=== PATIENT | male | born 1940 | race Caucasian/White ===

== ENCOUNTER 2019-11-23 11:15 | Inpatient (IN) | payer MEDICARE ==
[2019-11-23] MEDS ORDERED: Ondansetron PF 4 MG/2 ML Vial IVP PRN (12:14)
[2019-11-23] MEDS ORDERED: Bisacodyl 10 MG SUPP PR PRN (12:14)
[2019-11-23] MEDS ORDERED: Acetaminophen 325 MG TAB PO PRN (12:14)
[2019-11-23] MEDS ORDERED: Guaifenesin DM 100-10/5 ML UDCUP PO PRN (12:14)
[2019-11-23] MEDS ORDERED: Senokot S 8.6-50 MG TAB PO PRN (12:14)
[2019-11-23] MEDS ORDERED: Dextrose 50% Abboject 50 ML SYRINGE SLOW IVP PRN (12:19)
[2019-11-23] MEDS ORDERED: Dextrose 5% in Water 1,000 ML IV PRN (12:19)
[2019-11-23] MEDS ORDERED: HumaLOG 300 UNITS/3 ML VIAL SC PRN (12:19)
[2019-11-23 13:36] VITALS: BMI 24.0
[2019-11-23 13:43] LABS: #Lymphocytes 0.7 thou/uL (1.20-3.40); #Monocytes 0.6 thou/uL (0.11-0.59); #Neutrophils 2.7 thou/uL (1.40-6.50); %Basophils 0.6 % (0.0-1.0); %Eosinophils 1.2 % (0.0-10.0); %Lymphocytes 17.7 % (21.0-51.0); %Monocytes 14.5 % (0.0-10.0); Hemoglobin 13.8 g/dL (14.0-18.0); Mean Corpuscular HGB CONC 33.5 g/dL (32.0-36.0); Mean Corpuscular Hemoglobin 34.1 pg (27.0-31.0); Mean Platelet Volume 7.8 fL (7.4-10.4); Platelet Count 164 thou/uL (130-400); RBC Distribution Width 12.7 % (11.5-14.5); Red Blood Cell (RBC) Count 4.06 mill/uL (4.70-6.10)
[2019-11-23 13:44] LABS: INR-International Normal Ratio 1.4; Prothrombin Time 16.7 SEC (12.0-14.7)
[2019-11-23 13:58] LABS: ALT (SGPT) 23 U/L (8-55); AST (SGOT) 30 U/L (5-34); Alkaline Phosphatase 163 U/L (40-110); Anion Gap 13 mmol/L (10-20); BUN (Urea Nitrogen) 23 mg/dL (8.4-25.7); Bilirubin, Total 1.1 mg/dL (0.2-1.2); Calc. Creatinine Clearance 72 mL/min (70-130); Calcium 8.9 mg/dL (7.8-10.44); Carbon Dioxide 24 mmol/L (23-31); Chloride 100 mmol/L (98-107); Estimated GFR-MDRD 80; Globulin 3.4 g/dL (2.4-3.5); Glucose 265 mg/dL (83-110); Potassium 4.3 mmol/L (3.5-5.1); Protein, Total 6.4 g/dL (5.8-8.1); Sodium 133 mmol/L (136-145)
--- NOTE | 2019-11-23 14:09 | RAD ---
FRONTAL RADIOGRAPH CHEST PORTABLE UPRIGHT: Date: 11/23/2019 COMPARISON: 01/21/2006. HISTORY: Pneumonia with effusion. FINDINGS: Midline sternotomy wires are present. Right lung appears relatively unremarkable. Bilateral shoulder degenerative change noted. There is dense pleural and parenchymal opacity within the left lung base/left perihilar region with o bscuration of the left heart border, left hemidiaphragm, and left costophrenic angle. IMPRESSION: Dense pleural and parenchymal opacity in the left perihilar region/left base. Findings suggest infect ious pneumonitis/aspiration with associated pleural effusion. Follow-up imaging following treatment t o document resolution advised. POS: [facility]
--- NOTE | 2019-11-23 14:41 | PDOC.HOSPP ---
- Subjective Encounter Date: 11/23/19 Encounter Time: 14:00 Subjective: had left thoracentesis with slight serosanguinous fluid removed just now by . No sob or chest pain Post procedure mild cough on deep breathing feels better post procedure Responds well to verbal stimuli. Was transferred here for thoracentesis from [facility], he was hospitalized from last 3 days for pna and left pl effusion. Covid 19 test was -ve. He has been eating and drinking well at the [facility]. No fever or elevated wbc from last 3 days per transfering physician. - Objective Vital Signs & Weight: Vital Signs (12 hours) Temp Pulse Resp BP Pulse Ox 11/23/19 12:09 98.0 F 98 16 135/70 96 Weight Weight 176 lb 14.4 oz Result Diagrams: 11/23/19 13:27 11/23/19 13:27 Hospitalist ROS - Review of Systems Constitutional: denies: fever, chills, sweats, weakness, malaise, other Eyes: denies: pain, vision change, conjunctivae inflammation, eyelid inflammation, redness, other ENT: denies: ear pain, ear discharge, nose pain, nose discharge, nose congestion , mouth pain, mouth swelling, throat pain, throat swelling, other Respiratory: reports: cough, shortness of breath, SOB with excertion Cardiovascular: reports: orthopnea Gastrointestinal: denies: nausea, vomiting, abdominal pain, diarrhea, constipation, melena, hematochezia, other Genitourinary: denies: dysuria, frequency, incontinence, hematuria, retention, other Musculoskeletal: denies: neck pain, shoulder pain, arm pain, back pain, hand pain, leg pain, foot pain, other Skin: denies: rash, lesions, layla, bruising, other Neurological: denies: weakness, numbness, incoordination, change in speech, confusion, seizures, other All other systems reviewed; all pertinent +/- noted in HPI/Subj - Exam General Appearance: awake alert Eye: PERRL, anicteric sclera ENT: no oropharyngeal lesions, moist mucosa Neck: supple, no JVD Heart: no murmur, irregular Respiratory: no wheezes, no rales Gastrointestinal: soft, non-tender, non-distended, normal bowel sounds Extremities: no cyanosis, no edema Neurological: cranial nerve grossly intact, no focal deficits Psychiatric: normal affect, A&O x 3 Hosp A/P (1) Acute exacerbation of CHF (congestive heart failure) Code(s): I50.9 - HEART FAILURE, UNSPECIFIED Status: Acute Qualifiers: Heart failure type: diastolic Qualified Code(s): I50.33 - Acute on chronic diastolic (congestive) heart failure (2) PNA (pneumonia) Code(s): J18.9 - PNEUMONIA, UNSPECIFIED ORGANISM Status: Suspected Qualifiers: Pneumonia type: due to unspecified organism Laterality: left Lung location: lower lobe of lung Qualified Code(s): J18.9 - Pneumonia, unspecified organism (3) Afib Code(s): I48.91 - UNSPECIFIED ATRIAL FIBRILLATION Status: Acute (4) CAD (coronary artery disease) Code(s): I25.10 - ATHSCL HEART DISEASE OF [place] CORONARY ARTERY W/O ANG PCTRS Status: Chronic Qualifiers: Coronary Disease-Associated Artery/Lesion type: bypass graft [place] vs. transplanted heart: [place] heart Associated angina: without angina Qualified Code(s): I25.810 - Atherosclerosis of coronary artery bypass graft(s) without angina pectoris (5) HTN (hypertension) Code(s): I10 - ESSENTIAL (PRIMARY) HYPERTENSION Status: Chronic Qualifiers: Hypertension type: essential hypertension Qualified Code(s): I10 - Essential (primary) hypertension (6) Dyslipidemia Code(s): E78.5 - HYPERLIPIDEMIA, UNSPECIFIED Status: Chronic (7) COPD (chronic obstructive pulmonary disease) Status: Chronic Qualifiers: COPD type: chronic bronchitis (8) BPH (benign prostatic hyperplasia) Code(s): N40.0 - BENIGN PROSTATIC HYPERPLASIA WITHOUT LOWER URINRY TRACT SYMP Status: Chronic Qualifiers: Lower urinary tract symptom presence: unspecified whether lower urinary tract symptoms present Qualified Code(s): N40.0 - Benign prostatic hyperplasia without lower urinary tract symptoms (9) DM type 2 (diabetes mellitus, type 2) Status: Chronic Qualifiers: Diabetes mellitus prison insulin use: without parts counterman use (10) Recurrent left pleural effusion Code(s): J90 - PLEURAL EFFUSION, NOT ELSEWHERE CLASSIFIED Status: Acute - Plan s/p thoracentesis this afternoon, await lab work likely transudate continue home meds including atenolol, metformin, glimepride, lisinopril with hctz and low dose lasix, flomac, pravachol. dc plan in am if stable PT to mobilize as tolerated, incentive spirometry. His director of finance is and he has seen for pulm in the past per records but will f/u with from now on. hemostable Has new onset afib, was started on eliquis, last dose yesterday, will restart from 11/25/2019.
[2019-11-23 14:55] LABS: Fluid, pH - Pleural Fld 7.46 (7.60 - 7.66)
--- NOTE | 2019-11-23 15:25 | PRG ---
DATE OF SERVICE: 11/23/2019 HISTORY OF PRESENT ILLNESS: Mr. Beth is an 79-year-old male, transferred over from [facility] for possible empyema. I locked in the [place] through my office and all I saw was one single x-ray, no CT. He gives a history of having had fluid at the beginning of the year with hospitalization at [facility]. He was given medication and said that at his followup visit, his x-ray had returned to normal. He said the fluid was on the left. He now has fluid on the left again. He is asymptomatic other than feeling a little weak and run down. He had a COVID screen done at [facility], it was negative. His interventional nurse is Dr. Quiroz, and he has been told that his heart function is normal. He says he has been told that he has a heart of an 16-year-old. PAST MEDICAL HISTORY: Remarkable for, 1. Cardiac bypass grafting in the past. 2. Hypertension. 3. Lipid disorder. 4. Reported history of COPD. 5. History of BPH. 6. Diabetes. FAMILY HISTORY: Negative for lung disease in early age. SOCIAL HISTORY: He smoked when he was 28 years old, but has not smoked since. He is not a drinker. REVIEW OF SYSTEMS: 10 point review of systems completed, otherwise negative. ALLERGIES: HE REPORTS ALLERGIES TO NAPROSYN. PHYSICAL EXAMINATION: VITAL SIGNS: Afebrile. Blood pressure 135/70, oximetry is 96% on room air, pulse is 98. HEENT: Pupils are equal. Sclerae are anicteric. NECK: Supple. LUNGS: Remarkable decreased breath sounds with left base. HEART: Regular rhythm. S1 and S2 are normal. ABDOMEN: Soft and nontender. EXTREMITIES: Without clubbing, cyanosis, or edema. NEUROLOGIC: Nonfocal. DIAGNOSTIC DATA: Chest x-ray shows a left effusion. IMPRESSION: Pleural effusion of unclear etiology, likely diastolic heart failure related. PLAN: Thoracentesis. Risks of bleeding, infection, lung collapse were explained. This is a 50 minute consult, with greater than 50% of time spent on unit coordinating care excluding procedures. Job ID: [id number] [facility]
--- NOTE | 2019-11-23 15:53 | HP ---
REASON FOR ADMISSION: Left-sided pleural effusion to rule out parapneumonic effusion versus empyema. HISTORY OF PRESENTING ILLNESS: The patient was transferred from [facility] after being hospitalized there for 3 days. He was found to have had left lower lobe pneumonia with suspected effusion. He has also had history of CHF with diastolic dysfunction with chronic pleural effusions. The patient was also tested for COVID-19 and it came back negative this morning. A decision was made to transfer him for possible thoracentesis versus chest tube placement. He has been eating and drinking well there. He has also ambulated a bit in the room per transferring physician, Dr. Garrett. Prior to hospitalization, the patient has had complaints of exertional shortness of breath. He was also found to have had new-onset atrial fibrillation and was started on Eliquis. The last dose was yesterday. He has seen Dr. Parker who is covering for Dr. Quiroz, his primary steel pourer helper. PAST MEDICAL AND SURGICAL HISTORY: 1. History of CHF with diastolic dysfunction. Last echo was in June 2019, which showed an EF of 55%, diastolic dysfunction, moderate concentric LVH. 2. Coronary artery disease, CABG done in 2005. 3. Chronic bilateral effusions. 4. Diabetes mellitus type 2. Recent HbA1c was 8.5 at [facility]. 5. Hypertension. 6. Dyslipidemia. 7. Benign prostatic hypertrophy. 8. Possible COPD with history of heavy smoking in the past. 9. Knee replacement. 10. Osteoarthritis. CURRENT MEDICATIONS: The patient is on; 1. Atenolol 50 mg p.o. daily. 2. Metformin 1000 mg p.o. twice daily. 3. Glimepiride 1 mg twice daily. 4. Lisinopril with hydrochlorothiazide 20/12.5 mg p.o. daily. 5. Pravastatin 20 mg p.o. daily. 6. Flomax 0.4 mg p.o. daily. 7. Lasix 20 mg daily. 8. Vitamin D3 of 2000 units p.o. daily. 9. Aspirin 81 mg p.o. daily. 10. He was recently started on Eliquis here at [facility]. ALLERGIES: ALLERGIC TO NAPROSYN. PERSONAL HISTORY: Quit smoking years ago. Does not abuse alcohol or drugs. The patient is . FAMILY HISTORY: Father has had history of skin cancer. CODE STATUS: Full. REVIEW OF SYSTEMS: CONSTITUTIONAL: Negative for weight loss or gain, ability to conduct usual activities. SKIN: Negative for rash, itching. EYES: Negative for double vision, pain. ENT/MOUTH: Negative for nose bleeding, neck stiffness, pain, tenderness. CARDIOVASCULAR: Negative for palpitations, dyspnea on exertion, orthopnea. RESPIRATORY: Negative for shortness of breath, wheezing, cough, hemoptysis, fever or night sweats. GASTROINTESTINAL: Negative for poor appetite, abdominal pain, heartburn, nausea, vomiting, constipation, or diarrhea. GENITOURINARY: Negative for urgency, frequency, dysuria, nocturia. MUSCULOSKELETAL: Negative for pain, swelling. NEUROLOGIC/PSYCHIATRIC: Negative for anxiety, depression. ALLERGY/IMMUNOLOGIC: Negative for skin rash, bleeding tendency. PHYSICAL EXAMINATION: GENERAL: The patient is an 79-year-old male, who is currently not in any acute distress. VITAL SIGNS: Blood pressure 136/70, pulse 90 per minute, respiratory rate 18 per minute, temperature 98 degrees Fahrenheit, saturating 96% on room air. NECK: Supple. No elevated JVD. HEENT: Eyes; extraocular muscles intact. Pupils reacting to light. Oral cavity, mucous membranes are moist. No exudates or congestion. CARDIOVASCULAR: S1, S2 heard. Irregular rhythm. RESPIRATORY: Air entry 1+ bilateral. Please note, I am examining after he has had thoracentesis. He is having good air movement now in the left infrascapular area as well. Basal rales plus. ABDOMEN: Soft. Bowel sounds heard. No tenderness, rigidity, or guarding. EXTREMITIES: No peripheral edema or calf tenderness. VASCULAR: Peripheral pulses 1+ bilateral. No ischemic ulcerations or gangrene. CENTRAL NERVOUS SYSTEM: No gross focal deficits noted. The patient is alert, awake, and oriented well. PSYCHIATRIC SYSTEM: The patient's mood is euthymic. No hallucinations or delusions. LABORATORY AND DIAGNOSTIC DATA: White count of 4, H and H of 13 and 41, platelet count 164, MCV is 102 with 66% neutrophils, PT/INR 16 and 1.4, PTT 32. Sodium 133, BUN 23, creatinine 0.9, serum bicarb 24, serum glucose 265. Ferritin is 415. AST and ALT of 30 and 23, alkaline phosphatase 163. CRP 12.74. BNP 820. Albumin is 3.0. Pleural pH is 7.46. Chest x-ray done shows left-sided pleural effusion. Telemetry shows atrial fibrillation. CLINICAL IMPRESSION AND PLAN: The patient is being admitted to telemetry after being transferred from [facility] for left thoracentesis. He has had this procedure done. Post procedure, he is hemodynamically stable at present. He was on Zithromax and ceftriaxone for the last 3 days now. Likely, we will discontinue all his antibiotics, we will await Dr. Barragan's opinion. We will continue his atenolol, aspirin, glimepiride, metformin, lisinopril with hydrochlorothiazide, Pravachol, Flomax as before. We will also place him back on Eliquis from either tomorrow or day after. We will continue to closely monitor him on medical floor. He is hemodynamically stable and he might likely get discharged tomorrow based on clinical progress. We will obtain PT evaluation to ambulate him on the floor. Incentive spirometer will also be given for him to work with at bedside. Job ID: [id number]
[2019-11-23 15:58] LABS: RBC Count-Automated (BF) 5948 /cumm; WBC/Nucleated-Auto (BF) 1918 uL
[2019-11-23 15:59] LABS: BF Color Yellow; Body Fluid Source Thoracentesis Fluid; Clarity Cloudy/Turbid (Clear); Tube # EDTA
[2019-11-23 16:17] LABS: BF Segmented Neutrophils 23 %; Cell Count Non Hematic 35 %; Eosinophils 2 %; Lymphocytes 40 %
[2019-11-23] MEDS: Cefepime 1 GM in Sodium Chloride 0.9% 100 ML IVPB SCH (16:42)
[2019-11-23] MEDS: metFORMIN 500 MG TAB PO SCH (16:44)
[2019-11-23] MEDS: Famotidine 20 MG TAB PO SCH (20:34)
[2019-11-23] MEDS ORDERED: Simvastatin 5 MG TAB PO SCH (21:00)
--- NOTE | 2019-11-23 21:45 | CT ---
CHEST CT WITHOUT CONTRAST: Date: 11-23-2019 Comparison: None History: Effusion Technique: Axial CT imaging is obtained at 5 mm intervals from the thoracic inlet through the upper a bdomen without contrast. Coronal and sagittal reformatted imaging obtained. FINDINGS: The lack of contrast media limits assessment of the imaged viscera, the vascular structures and for l ymphadenopathy. Limited assessment of the upper abdomen demonstrates mild irregularity of the hepatic parenchyma. No pneumothorax is noted on either side. Midline sternotomy wires are present. No obvious lymphadenopath y in the chest. There are calcific mediastinal and bilateral hilar lymph nodes, evidence of prior gra nulomatous disease. Midline sternotomy wires and extensive coronary arterial calcification. No pneumothorax is evident on either side. Scattered pulmonary parenchymal granulomata noted on the right. No dominant pulmonary parenchymal mass lesion or nodule is noted on the right. There is reticular nodular infiltrate with scattered areas of focal consolidation involving the infer ior posterior aspect of the lingula. There is also reticular nodular infiltrate within the superior s egment of the left lower lobe. Within the inferior aspect of the left lower lobe there is peripheral inferior consolidation/collapse. There is a small left pleural effusion as well. Along the posterior margin of the inferior medial left hemithorax there is pleural thickening and mild pleural nodularity , best seen on axial images 47 through 58. No discrete endobronchial lesion is appreciated on this exam. Review of the osseous structures demonstrate multilevel thoracic spine disc space narrowing and anter ior right sided osteophyte formation. No worrisome lytic or blastic bone lesions. Bilateral shoulder degenerative change noted. IMPRESSION: 1. Multifocal reticular nodule or infiltrate within the lingula and left lower lobe suggesting multil obar infectious pneumonitis. There is a small associated inferior left pleural effusion with mild thi ckening and nodularity of the pleura within the left lung base. This may reflect infection or less li davin malignancy. Recommend short term follow up chest CT with IV contrast following treatment to docu ment resolution. 2. Heterogeneity of the hepatic parenchyma suggesting underlying hepatocellular disease/cirrhosis. 3. Extensive atherosclerotic disease. 4. Evidence of prior granulomatous disease. POS: [facility]
[2019-11-24] MEDS: Cefepime 1 GM in Sodium Chloride 0.9% 100 ML IVPB SCH (02:30)
[2019-11-24 04:56] LABS: ALT (SGPT) 21 U/L (8-55); AST (SGOT) 29 U/L (5-34); Albumin 2.8 g/dL (3.4-4.8); Alkaline Phosphatase 146 U/L (40-110); Anion Gap 14 mmol/L (10-20); BUN (Urea Nitrogen) 25 mg/dL (8.4-25.7); Bilirubin, Total 1.1 mg/dL (0.2-1.2); Calc. Creatinine Clearance 76 mL/min (70-130); Calcium 8.7 mg/dL (7.8-10.44); Carbon Dioxide 25 mmol/L (23-31); Chloride 102 mmol/L (98-107); Estimated GFR-MDRD 84; Globulin 3.2 g/dL (2.4-3.5); Glucose 146 mg/dL (83-110); Potassium 4.2 mmol/L (3.5-5.1); Sodium 137 mmol/L (136-145)
[2019-11-24 05:28] LABS: Band 3 % (5-11); Eosinophils 5 % (0-10); Hemoglobin 12.9 g/dL (14.0-18.0); Lymphocytes 34 % (21-51); MDiff Complete? YES; Mean Corpuscular HGB CONC 34.4 g/dL (32.0-36.0); Mean Corpuscular Hemoglobin 35.1 pg (27.0-31.0); Mean Platelet Volume 7.1 fL (7.4-10.4); Monocytes 12 % (0-10); Neutrophil 45 % (42-75); Platelet Count 200 thou/uL (130-400); RBC Distribution Width 12.6 % (11.5-14.5); Reactive Lymphocytes 1 % (0-10); Red Blood Cell (RBC) Count 3.66 mill/uL (4.70-6.10)
--- NOTE | 2019-11-24 06:09 | OP ---
DATE OF PROCEDURE: 11/23/2019 PROCEDURE PERFORMED: Thoracentesis. INDICATION: Pleural effusion. DESCRIPTION OF PROCEDURE: The patient was prepped in sterile fashion with chlorhexidine sponge wipe over left posterior hemithorax. 10 mL of 1% lidocaine was used to anesthetize the interspace and localize fluid using a 22-gauge needle. A small incision was made. An 8-Finnish catheter was inserted in the pleural space without difficulty. 1 L of clear yellow pleural fluid was evacuated from the left chest. No air was aspirated. There was no clinical indication of pneumothorax. The patient tolerated the procedure well. Fluid was sent for the appropriate studies. Job ID: [id number]
[2019-11-24] MEDS ORDERED: Glimepiride 2 MG TAB PO SCH (08:00)
[2019-11-24] MEDS: metFORMIN 500 MG TAB PO SCH (08:32)
[2019-11-24] MEDS: Famotidine 20 MG TAB PO SCH (08:33)
[2019-11-24] MEDS ORDERED: Aspirin 81 mg Enteric Coated Tablet PO SCH (09:00)
[2019-11-24] MEDS ORDERED: Tamsulosin HCl 0.4 MG CAP PO SCH (09:00)
[2019-11-24] MEDS ORDERED: Lisinopril/Hydrochlorothiazide 20 mg/12.5 mg Tablet PO SCH (09:00)
[2019-11-24] MEDS ORDERED: Atenolol 50 MG TAB PO SCH (09:00)
[2019-11-24] MEDS ORDERED: Furosemide 20 MG TAB PO SCH (09:00)
[2019-11-24 11:33] VITALS: BP 127/73; TEMP 97.5
--- NOTE | 2019-11-24 11:55 | PRG ---
DATE OF SERVICE: SUBJECTIVE: Mr. Beth says he feels better. He actually looks great. I talked to Dr. Leiva about him who has access to [facility] and says his radiograph last fall was similar to the radiograph on presentation here. In September, his radiograph cleared. His presentation last fall was felt to be secondary to diastolic dysfunction. This admission, his echocardiogram showed an ejection fraction of 45% to 50%. OBJECTIVE: VITAL SIGNS: He is afebrile today. Heart rate in the 70s, respiratory rates in the teens, oximetry is 98. LUNGS: Clear. HEART: Regular rhythm. ABDOMEN: Soft. ASSESSMENT AND PLAN: CT of his chest last night did not show any mass hiding anywhere in his chest. Pathology is pending. Fluid was exudative, but I suspect it is a subacute/chronic effusion leading to these numbers. It would not be unreasonable treating for an underlying pneumonia, although I suspect this is still related to his cardiomyopathy. I would like to do a followup chest x-ray in 6 weeks. He has my number. I appreciate Dr. Leiva reviewing his records at [facility]. Job ID: [id number]
--- NOTE | 2019-11-24 12:08 | CON ---
DATE OF CONSULTATION: HISTORY OF PRESENT ILLNESS: This is an 79-year-old gentleman who was transferred from [facility] yesterday with possible empyema. The patient had been at [facility] for 2 to 3 days with what was suspected to be a left lower lobe pneumonia and effusion. He presented with some exertional shortness of breath. The patient's past medical history is significant and that he was diagnosed with diastolic dysfunction with a normal ejection fraction of 55% in June, when he was hospitalized at [facility] in [place]. At that time, he was noted to have an effusion and was seen by Pulmonary who recommended conservative management. In September, he had a repeat chest x-ray that showed resolution of his effusion. In 2005, he had coronary artery bypass grafting. His additional medical problems include hypertension, dyslipidemia, type 2 diabetes mellitus, mild to moderate control. In any event, he underwent thoracentesis yesterday by Dr. Barragan with a liter of yellow fluid with a pH of 7.5. Protein was 3.3. He had a CT scan done yesterday evening, and I have reviewed that as well as his chest x-rays at [facility] and CT scan at [facility]. He may have some compressive atelectasis in his left lower lobe and lingula that is not resolved or a mild pneumonia. There is some small amount of basilar pleural fluid and a small amount in the fissure. The additional laboratory values, the patient has no growth on his pleural fluid at 12 hours with no organisms and rare white cells. His white count is 4000 with no left shift. PHYSICAL EXAMINATION: VITAL SIGNS: He is afebrile, blood pressure is 150/80, and his O2 saturation on room air is 96%. LUNGS: Clear to auscultation anteriorly with no wheezes. CARDIAC: No murmurs. He does have ectopy or irregular rhythm. EXTREMITIES: He has trace pretibial edema on the left and none on the right. ASSESSMENT AND PLAN: At this time, I am assuming that this is probably a non infectious process with known diastolic dysfunction and a recent BNP in June of about 1600 and also elevated on this admission at 800. Agree with blood pressure control and diuresis, and after discussion with Dr. Barragan, perhaps 5 to 7 days of oral antibiotics as outpatient. Job ID: [id number]
[2019-11-24] MEDS ORDERED: Vancomycin HCl 1.25 GM in Sodium Chloride 0.9% 250 ML 250 ML IVPB SCH (16:00)
--- NOTE | 2019-11-24 17:29 | DIS ---
DATE OF ADMISSION: 11/23/2019 DATE OF DISCHARGE: 11/24/2019 DISCHARGE DISPOSITION: Home. PRIMARY DISCHARGE DIAGNOSES: [id number] congestive heart failure exacerbation with systolic and diastolic dysfunction with ejection fraction of around 45% with moderate left pleural effusion status post paracentesis with removal of 1 L of fluid. SECONDARY DISCHARGE DIAGNOSES: History of coronary artery disease, diabetes mellitus type 2, hypertension, dyslipidemia, benign prostatic hypertrophy. PROCEDURES DONE DURING HOSPITALIZATION: Chest x-ray done showed left-sided pleural effusion with possible parenchymal opacity. CT chest post thoracentesis done showed multifocal reticular nodule or infiltrate within the lingula in the left lower lobe suggesting multilobar infectious pneumonitis, small associated inferior left pleural effusion, possible hepatocellular disease with heterogeneity, extensive arthrosclerotic disease, echo with 2D Doppler showed an ejection fraction of 45-50%. Thoracentesis done by Dr. Barragan at bedside on 11/23/2019 with removal of 1 L fluid. Thoracentesis fluid Gram stain is negative. There is no growth at 12 hours. White count of 4, H and H 12 and 37, platelet count 200, MCV is 102 with 66% neutrophils. PT/INR 16.7 and 1.4, PTT 32, BUN 25, creatinine 0.8, BNP 820. Albumin 2.8. AST and ALT within normal limits. CRP was 12. DISCHARGE MEDICATIONS: 1. Omnicef 300 mg p.o. twice daily for 6 days. 2. Lasix 20 mg daily. 3. Atenolol 50 mg daily. 4. Aspirin 81 mg daily. 5. Eliquis 2.5 mg twice daily. 6. Flomax 0.4 mg daily. 7. Pravastatin 20 mg p.o. daily. 8. Metformin 1000 mg twice daily. 9. Lisinopril with hydrochlorothiazide 20/12.5 mg daily. 10. Lantus 6 units daily. 11. Glimepiride 1 mg twice daily. 12. Vitamin D3 1000 units p.o. daily. ALLERGIES: TO NAPROSYN. INPATIENT CONSULT: Dr. Leiva for vascular surgery, Dr. Barragan for Pulmonology. DISCHARGE PLAN: The patient to follow up with Dr. Quiroz in 2 weeks. He needs to follow up with Dr. Barragan in 4-6 weeks, Dr. Arcos, his primary care physician in 1 week. BRIEF COURSE DURING HOSPITALIZATION: The patient initially was hospitalized at [facility] for pneumonia and CHF exacerbation with diastolic dysfunction. He had COVID 19 testing done which was negative. The patient had developed moderate left pleural effusion and was transferred here for further workup. He has had consultation with Dr. Barragan and Dr. Leiva. The patient has had bedside thoracentesis done on the left side with removal of 1 L of fluid. Cytology on the fluid is currently pending. The patient has known history of CHF with systolic and diastolic dysfunction. The pleural fluid revealed 1918 wbcs', 5948 rbcs' with 23% neutrophils, 40% lymphocytes. Pleural LDH was 166. Total protein in the pleural fluid was 3.3, pleural glucose was 223, pleural amylase 73, pleural pH 7.5. There were larger atypical cells seen on the body fluid. Differential count and cytology are currently pending. Post thoracentesis, the patient's shortness of breath is better. He is ambulating in the room and in the hallway. [facility] with PT and nursing has been arranged. He is hemodynamically stable and has been cleared for discharge by both Dr. Barragan and Dr. Leiva. He needs to continue Omnicef for a total of 6 days. The patient will have a followup with Dr. Barragan in 4 to 6 weeks likely with a repeat CT chest with contrast. He needs follow up with Dr. Quiroz, his process engineering technician in 2 weeks. He needs to continue the current medications as advised. The patient has been advised to check blood pressure and pulse twice daily. He has to record this and follow up with his primary care physician in 1 week. If his blood pressure drops down, he needs to discontinue Lasix and continue the other medications. Please note, I have seen and examined the patient on the day of discharge. Job ID: [id number]
== END 2019-11-24 13:01 | disposition home health service (06) | DRG 292 ==
LOC: 2NO 12:17
PROVIDERS: ADMIT Internal Medicine; ATTEND Internal Medicine
PROC: 0W9B3ZZ Drainage of Left Pleural Cavity, Percutaneous Approach (ICD-10-PCS; principal; 2019-11-23)
PROC: 8E0ZXY6 Isolation (ICD-10-PCS; 2019-11-23)
DX: I11.0 Hypertensive heart disease with heart failure (principal); J91.8 Pleural effusion in other conditions classified elsewhere; I50.43 Acute on chronic combined systolic (congestive) and diastolic (congestive) heart failure; I25.10 Atherosclerotic heart disease of native coronary artery without angina pectoris; I48.91 Unspecified atrial fibrillation; E11.9 Type 2 diabetes mellitus without complications; I42.9 Cardiomyopathy, unspecified; Z96.659 Presence of unspecified artificial knee joint; E78.5 Hyperlipidemia, unspecified; N40.0 Benign prostatic hyperplasia without lower urinary tract symptoms; Z95.1 Presence of aortocoronary bypass graft; Z88.8 Allergy status to other drugs, medicaments and biological substances
CPT/HCPCS: 36415; 36416; 71045; 71250; 80053; 82150; 82728; 82945; 83615; 83880; 83986; 84157; 85025; 85060; 85610; 85730; 86140; 87070; 87205; 88112; 88305; 89051; 93306; J0692; J3490

== ENCOUNTER 2020-01-02 09:18 | Outpatient (CLI) | payer MEDICARE ==
--- NOTE | 2020-01-02 10:08 | RAD ---
2 VIEWS CHEST: Date: 01/02/2020 COMPARISON: 11/23/2019. HISTORY: Dyspnea. FINDINGS: 2 views of the chest show an enlarged but stable cardiomediastinal silhouette. There is a small left pleural effusion with adjacent atelectasis. The patient is status post sternotomy. Degenerative martins es are seen in the spine. IMPRESSION: Left pleural effusion with adjacent atelectasis. POS: [facility]
== END 2020-01-02 09:19 | disposition home or self-care (01) ==
LOC: RAD 09:18
PROVIDERS: ATTEND Internal Medicine Critical Care Medicine
DX: R06.00 Dyspnea, unspecified (principal); J90 Pleural effusion, not elsewhere classified; J98.11 Atelectasis
CPT/HCPCS: 71046

== ENCOUNTER 2020-01-28 09:55 | Outpatient (CLI) | payer MEDICARE ==
--- NOTE | 2020-01-28 11:47 | RAD ---
PA AND LATERAL VIEWS CHEST: Date: 01/28/2020 HISTORY: Dyspnea. COMPARISON: 01/02/2020. FINDINGS: There are changes of median sternotomy. Moderate sized left pleural effusion is seen. This is slightl y larger than on the previous study. The aorta is tortuous. The heart size is enlarged. The right argelia g is unremarkable. No pneumothoraces seen. IMPRESSION: Moderate size left pleural effusion with mild interval increase in size since 12/13/2019. POS: [facility]
== END 2020-01-28 09:56 | disposition home or self-care (01) ==
LOC: BICRAD 09:55
PROVIDERS: ATTEND Internal Medicine Critical Care Medicine
DX: R06.00 Dyspnea, unspecified (principal); J90 Pleural effusion, not elsewhere classified
CPT/HCPCS: 71046

== ENCOUNTER 2020-06-22 14:29 | Outpatient (CLI) | payer MEDICARE ==
--- NOTE | 2020-06-22 14:52 | SJPRAD ---
EXAM: Chest PA and lateral: HISTORY: Dyspnea COMPARISON: 01/28/2020 FINDINGS: Postop midline sternotomy. Heart size:Within normal limits. Lungs:Clear of acute process. Stable moderate pleural effusion on the left side. IMPRESSION: Overall stable exam.
== END 2020-06-22 14:30 | disposition home or self-care (01) ==
LOC: SCSRAD 14:29
PROVIDERS: ATTEND Physician Assistant
DX: R06.02 Shortness of breath (principal)
CPT/HCPCS: 87635; U0003

== ENCOUNTER 2020-10-29 10:54 | Outpatient (CLI) | payer MEDICARE | END 2020-10-29 10:55 | disposition home or self-care (01) | LOC: BICRAD 10:54 | PROVIDERS: ATTEND Thoracic Surgery (Cardiothoracic Vascular Surgery) | DX: I50.9 Heart failure, unspecified (principal); J86.9 Pyothorax without fistula; J90 Pleural effusion, not elsewhere classified | CPT/HCPCS: 71046 ==

== ENCOUNTER 2022-10-20 15:11 | Inpatient (IN) | payer OTHER, MEDICARE, BC ==
[2022-10-20 15:35] LABS: #Eosinphils 0.1 thou/uL (0.0-0.7); #Lymphocytes 1.1 thou/uL (1.20-3.40); #Monocytes 0.7 thou/uL (0.11-0.59); #Neutrophils 4.1 thou/uL (1.40-6.50); %Basophils 0.5 % (0.0-1.0); %Eosinophils 1.7 % (0.0-10.0); %Lymphocytes 18.8 % (21.0-51.0); %Monocytes 11.6 % (0.0-10.0); %Neutrophils 67.5 % (42.0-75.0); Hemoglobin 10.9 g/dL (14.0-18.0); Mean Corpuscular Hemoglobin 32.4 pg (27.0-31.0); Mean Corpuscular Volume 98.3 fl (78.0-98.0); Mean Platelet Volume 7.1 fL (7.4-10.4); Platelet Count 161 10x3/uL (130-400); Red Blood Cell (RBC) Count 3.37 mill/uL (4.70-6.10); White Blood Cell (WBC) Count 6.1 10x3/uL (4.8-10.8)
[2022-10-20] MEDS ORDERED: Ondansetron PF 4 MG/2 ML Vial ONE (15:40)
[2022-10-20] MEDS ORDERED: FENTANYL 50 MCG/ML 1 ML VIAL ONE (15:46)
[2022-10-20 15:48] LABS: INR-International Normal Ratio 1.7; Prothrombin Time 20.9 sec (12.0-14.7)
[2022-10-20 15:57] LABS: ALT (SGPT) 26 U/L (8-55); AST (SGOT) 44 U/L (5-34); Albumin 3.3 g/dL (3.4-4.8); Alkaline Phosphatase 138 U/L (40-110); Anion Gap 13 mmol/L (10-20); BUN (Urea Nitrogen) 50 mg/dL (8.4-25.7); Bilirubin, Total 1.2 mg/dL (0.2-1.2); CK (CPK) 347 U/L (30-200); Calc. Creatinine Clearance 0 mL/min (70-130); Calcium 8.8 mg/dL (7.8-10.44); Carbon Dioxide 27 mmol/L (23-31); Chloride 101 mmol/L (98-107); Estimated GFR 24; Globulin 3.9 g/dL (2.4-3.5); Glucose 196 mg/dL (83-110); Lipase 45 U/L (8-78); Potassium 4.3 mmol/L (3.5-5.1); Protein, Total 7.2 g/dL (5.8-8.1); Sodium 137 mmol/L (136-145)
[2022-10-20 16:18] LABS: CKMB 12.8 ng/mL (0-6.6)
[2022-10-20] MEDS ORDERED: Ketorolac Tromethamine 30 MG/ML VIAL ONE (16:27)
[2022-10-20] MEDS ORDERED: Lidocaine 1% w/Epinephrine 1:100K 20 ML VIAL ONE (16:56)
[2022-10-20] MEDS ORDERED: CEFAZOLIN 2 GM VIAL ONE (17:59)
[2022-10-20] MEDS ORDERED: Boostrix 0.5 ML (Tdap) VIAL (>/=7 yrs of age) ONE (18:09)
[2022-10-20] MEDS ORDERED: Promethazine HCl 12.5 MG in Sodium Chloride 0.9% 50 ML IVPB SCH (18:15)
[2022-10-20 19:06] LABS: Troponin I 0.129 ng/mL (< 0.028)
[2022-10-20] MEDS ORDERED: Ondansetron PF 4 MG/2 ML Vial IVP PRN (19:30)
[2022-10-20] MEDS ORDERED: Ondansetron ODT 4 MG TAB SL PRN (19:30)
[2022-10-20] MEDS: Acetaminophen 325 MG TAB PO PRN (20:32)
[2022-10-20] MEDS ORDERED: Dextrose 5% in Water 1,000 ML IV PRN (20:53)
[2022-10-20] MEDS ORDERED: Dextrose 50% Abboject 50 ML SYRINGE SLOW IVP PRN (20:53)
[2022-10-20] MEDS ORDERED: Morphine 2 MG/ML VIAL SLOW IVP PRN (20:56)
[2022-10-20] MEDS ORDERED: Lactated Ringer's 1,000 ML IV SCH (21:00)
[2022-10-20] MEDS ORDERED: Apixaban 2.5 MG TAB PO SCH (21:00)
[2022-10-20] MEDS: Furosemide 40 MG TAB PO SCH ×2 (21:16→22:12)
[2022-10-20] MEDS: tiZANidine HCl 4 MG TAB PO PRN (21:16)
[2022-10-20] MEDS: Dronedarone HCl 400 MG TAB PO SCH (21:16)
[2022-10-20 21:28] VITALS: BMI 22.8
[2022-10-20 22:59] LABS: Troponin I 0.183 ng/mL (< 0.028)
[2022-10-21 02:15] LABS: #Lymphocytes 0.5 thou/uL (1.20-3.40); #Monocytes 0.7 thou/uL (0.11-0.59); #Neutrophils 3.6 thou/uL (1.40-6.50); %Basophils 0.2 % (0.0-1.0); %Eosinophils 0.5 % (0.0-10.0); %Lymphocytes 10.1 % (21.0-51.0); %Monocytes 14.3 % (0.0-10.0); %Neutrophils 74.9 % (42.0-75.0); Hemoglobin 9.3 g/dL (14.0-18.0); Mean Corpuscular HGB CONC 32.9 g/dL (32.0-36.0); Mean Corpuscular Hemoglobin 33.1 pg (27.0-31.0); Mean Platelet Volume 7.2 fL (7.4-10.4); Platelet Count 138 10x3/uL (130-400); RBC Distribution Width 12.2 % (11.5-14.5); Red Blood Cell (RBC) Count 2.81 mill/uL (4.70-6.10); White Blood Cell (WBC) Count 4.8 10x3/uL (4.8-10.8)
[2022-10-21 02:54] LABS: Anion Gap 13 mmol/L (10-20); BUN (Urea Nitrogen) 53 mg/dL (8.4-25.7); Calc. Creatinine Clearance 24 mL/min (70-130); Calcium 8.6 mg/dL (7.8-10.44); Carbon Dioxide 26 mmol/L (23-31); Chloride 104 mmol/L (98-107); Estimated GFR 25; Glucose 214 mg/dL (83-110); Potassium 4.6 mmol/L (3.5-5.1); Sodium 138 mmol/L (136-145)
[2022-10-21 04:22] LABS: Hemoglobin 9.3 g/dL (14.0-18.0); Mean Corpuscular HGB CONC 33.1 g/dL (32.0-36.0); Mean Corpuscular Hemoglobin 33.1 pg (27.0-31.0); Mean Platelet Volume 7.4 fL (7.4-10.4); Platelet Count 141 10x3/uL (130-400); RBC Distribution Width 12.1 % (11.5-14.5); Red Blood Cell (RBC) Count 2.81 mill/uL (4.70-6.10); White Blood Cell (WBC) Count 4.4 10x3/uL (4.8-10.8)
[2022-10-21 05:31] LABS: Band 2 % (5-11); Eosinophils 2 % (0-10); Lymphocytes 13 % (21-51); MDiff Complete? YES; Monocytes 14 % (0-10); Neutrophil 69 % (42-75)
[2022-10-21] MEDS: Acetaminophen 325 MG TAB PO PRN (06:41)
[2022-10-21] MEDS: Tamsulosin HCl 0.4 MG CAP PO SCH (09:53)
[2022-10-21] MEDS: Insulin Glargine 30 UNITS/0.3 ML VIAL SC SCH (09:53)
[2022-10-21] MEDS: Aspirin 81 mg Enteric Coated Tablet PO SCH (09:54)
[2022-10-21] MEDS: Dronedarone HCl 400 MG TAB PO SCH ×2 (09:54→20:16)
[2022-10-21] MEDS: Cholecalciferol 1,000 UNITS (25 MCG) TAB PO SCH (09:54)
[2022-10-21] MEDS: Potassium Chloride 20 MEQ TAB PO SCH (09:54)
[2022-10-21] MEDS: tiZANidine HCl 4 MG TAB PO PRN (09:58)
[2022-10-21] MEDS ORDERED: Sodium Chloride 0.9% 1,000 ML IV SCH (12:30)
[2022-10-21] MEDS ORDERED: Pantoprazole 40 MG VIAL IVP SCH (13:00)
[2022-10-21] MEDS: HYDROcodone/Acetaminophen 5/325 mg Tablet PO PRN (13:11)
[2022-10-21] MEDS ORDERED: Hydrocortisone Sod Succ/PF 100 mg/2 ml Vial IVP SCH (14:30)
[2022-10-21] MEDS ORDERED: NOREPINEPHRINE 8 MG/250 ML-D5W 250 ML ONE (14:33)
[2022-10-21 14:51] LABS: #Eosinphils 0.1 thou/uL (0.0-0.7); #Lymphocytes 0.5 thou/uL (1.20-3.40); #Monocytes 0.6 thou/uL (0.11-0.59); #Neutrophils 3.5 thou/uL (1.40-6.50); %Basophils 0.5 % (0.0-1.0); %Eosinophils 1.7 % (0.0-10.0); %Lymphocytes 11.2 % (21.0-51.0); %Monocytes 13.3 % (0.0-10.0); %Neutrophils 73.3 % (42.0-75.0); Hemoglobin 9.8 g/dL (14.0-18.0); Mean Corpuscular HGB CONC 32.6 g/dL (32.0-36.0); Mean Corpuscular Hemoglobin 33.2 pg (27.0-31.0); Mean Platelet Volume 7.2 fL (7.4-10.4); Platelet Count 156 10x3/uL (130-400); RBC Distribution Width 12.2 % (11.5-14.5); Red Blood Cell (RBC) Count 2.94 mill/uL (4.70-6.10); White Blood Cell (WBC) Count 4.7 10x3/uL (4.8-10.8)
[2022-10-21 15:10] LABS: Lactic Acid 1.3 mmol/L (0.5-2.2)
[2022-10-21 15:15] LABS: Anion Gap 14 mmol/L (10-20); BUN (Urea Nitrogen) 53 mg/dL (8.4-25.7); Calc. Creatinine Clearance 26 mL/min (70-130); Calcium 8.6 mg/dL (7.8-10.44); Carbon Dioxide 22 mmol/L (23-31); Chloride 104 mmol/L (98-107); Estimated GFR 27; Glucose 167 mg/dL (83-110); Magnesium 1.9 mg/dL (1.6-2.6); Phosphorus 3.8 mg/dL (2.3-4.7); Potassium 4.8 mmol/L (3.5-5.1); Sodium 135 mmol/L (136-145)
[2022-10-21] MEDS: Hydrocortisone Sod Succ/PF 100 mg/2 ml Vial IVP SCH (17:31)
[2022-10-21] MEDS ORDERED: NOREPINEPHRINE 8 MG/250 ML-D5W 250 ML IVPB SCH (20:30)
[2022-10-22] MEDS: Hydrocortisone Sod Succ/PF 100 mg/2 ml Vial IVP SCH ×5 (05:16→18:04)
[2022-10-22 05:26] LABS: #Lymphocytes 0.4 thou/uL (1.20-3.40); #Monocytes 0.2 thou/uL (0.11-0.59); %Basophils 0.2 % (0.0-1.0); %Eosinophils 0.1 % (0.0-10.0); %Lymphocytes 6.3 % (21.0-51.0); %Neutrophils 90.4 % (42.0-75.0); Hemoglobin 10.9 g/dL (14.0-18.0); Mean Platelet Volume 7.7 fL (7.4-10.4); Platelet Count 156 10x3/uL (130-400); RBC Distribution Width 12.3 % (11.5-14.5); Red Blood Cell (RBC) Count 3.29 mill/uL (4.70-6.10); White Blood Cell (WBC) Count 6.6 10x3/uL (4.8-10.8)
[2022-10-22 05:49] LABS: ALT (SGPT) 23 U/L (8-55); AST (SGOT) 51 U/L (5-34); Albumin 2.9 g/dL (3.4-4.8); Alkaline Phosphatase 102 U/L (40-110); Anion Gap 12 mmol/L (10-20); BUN (Urea Nitrogen) 52 mg/dL (8.4-25.7); Bilirubin, Total 1.1 mg/dL (0.2-1.2); Calc. Creatinine Clearance 26 mL/min (70-130); Calcium 8.8 mg/dL (7.8-10.44); Carbon Dioxide 26 mmol/L (23-31); Chloride 102 mmol/L (98-107); Estimated GFR 28; Globulin 3.9 g/dL (2.4-3.5); Glucose 185 mg/dL (83-110); Potassium 5.3 mmol/L (3.5-5.1); Protein, Total 6.8 g/dL (5.8-8.1); Sodium 135 mmol/L (136-145)
[2022-10-22] MEDS: Aspirin 81 mg Enteric Coated Tablet PO SCH (07:49)
[2022-10-22] MEDS: Cholecalciferol 1,000 UNITS (25 MCG) TAB PO SCH (07:49)
[2022-10-22] MEDS: Pantoprazole 40 MG VIAL IVP SCH (07:49)
[2022-10-22] MEDS: Tamsulosin HCl 0.4 MG CAP PO SCH (07:49)
[2022-10-22] MEDS: Dronedarone HCl 400 MG TAB PO SCH ×2 (07:49→22:17)
[2022-10-22] MEDS: Potassium Chloride 20 MEQ TAB PO SCH (07:49)
[2022-10-22] MEDS: HYDROcodone/Acetaminophen 5/325 mg Tablet PO PRN ×2 (07:50→17:12)
[2022-10-22] MEDS: Insulin Glargine 30 UNITS/0.3 ML VIAL SC SCH (07:50)
[2022-10-22] MEDS: Cyclobenzaprine 10 MG TAB PO PRN ×2 (13:28→22:17)
[2022-10-22] MEDS: HumaLOG 300 UNITS/3 ML VIAL SC PRN (17:21)
[2022-10-22 18:50] LABS: Albumin 2.8 g/dL (3.4-4.8); Anion Gap 15 mmol/L (10-20); BUN (Urea Nitrogen) 65 mg/dL (8.4-25.7); BUN/Creatinine Ratio 25.59; Calc. Creatinine Clearance 23 mL/min (70-130); Calcium 8.9 mg/dL (7.8-10.44); Carbon Dioxide 23 mmol/L (23-31); Chloride 100 mmol/L (98-107); Estimated GFR 24; Glucose 371 mg/dL (83-110); Phosphorus 4.1 mg/dL (2.3-4.7); Potassium 5.8 mmol/L (3.5-5.1); Sodium 132 mmol/L (136-145)
[2022-10-22] MEDS ORDERED: Lidocaine 4% Patch TD SCH (19:30)
[2022-10-22] MEDS ORDERED: LOKELMA 10 GM PACKET PO SCH (19:57)
[2022-10-23] MEDS: Hydrocortisone Sod Succ/PF 100 mg/2 ml Vial IVP SCH ×5 (00:38→23:18)
[2022-10-23] MEDS: HYDROcodone/Acetaminophen 5/325 mg Tablet PO PRN ×4 (00:39→23:39)
[2022-10-23] MEDS: HumaLOG 300 UNITS/3 ML VIAL SC PRN ×3 (00:40→23:19)
[2022-10-23 05:39] LABS: #Lymphocytes 0.5 thou/uL (1.20-3.40); #Monocytes 0.6 thou/uL (0.11-0.59); #Neutrophils 6.4 thou/uL (1.40-6.50); %Eosinophils 0.1 % (0.0-10.0); %Monocytes 8.2 % (0.0-10.0); %Neutrophils 84.7 % (42.0-75.0); Hemoglobin 10.7 g/dL (14.0-18.0); Mean Corpuscular HGB CONC 32.4 g/dL (32.0-36.0); Mean Corpuscular Hemoglobin 32.3 pg (27.0-31.0); Mean Corpuscular Volume 99.8 fl (78.0-98.0); Mean Platelet Volume 7.6 fL (7.4-10.4); Platelet Count 197 10x3/uL (130-400); RBC Distribution Width 12.5 % (11.5-14.5); Red Blood Cell (RBC) Count 3.31 mill/uL (4.70-6.10); White Blood Cell (WBC) Count 7.5 10x3/uL (4.8-10.8)
[2022-10-23 05:54] LABS: Anion Gap 15 mmol/L (10-20); BUN (Urea Nitrogen) 72 mg/dL (8.4-25.7); Calc. Creatinine Clearance 24 mL/min (70-130); Calcium 8.9 mg/dL (7.8-10.44); Carbon Dioxide 23 mmol/L (23-31); Chloride 99 mmol/L (98-107); Estimated GFR 25; Glucose 299 mg/dL (83-110); Potassium 5.5 mmol/L (3.5-5.1); Sodium 131 mmol/L (136-145)
[2022-10-23] MEDS ORDERED: Transdermal Patch Removal TOP SCH (08:00)
[2022-10-23] MEDS: Albumin 25% 25 GM/100 ML BOT IVPB SCH ×3 (10:17→23:18)
[2022-10-23] MEDS: Pantoprazole 40 MG VIAL IVP SCH (10:20)
[2022-10-23] MEDS: Tamsulosin HCl 0.4 MG CAP PO SCH (10:21)
[2022-10-23] MEDS: Insulin Glargine 30 UNITS/0.3 ML VIAL SC SCH (10:21)
[2022-10-23] MEDS: Cholecalciferol 1,000 UNITS (25 MCG) TAB PO SCH (10:22)
[2022-10-23] MEDS: Aspirin 81 mg Enteric Coated Tablet PO SCH (10:22)
[2022-10-23] MEDS: Dronedarone HCl 400 MG TAB PO SCH ×2 (10:22→23:19)
[2022-10-24 05:28] LABS: #Lymphocytes 0.4 thou/uL (1.20-3.40); #Monocytes 0.4 thou/uL (0.11-0.59); #Neutrophils 5.8 thou/uL (1.40-6.50); %Basophils 0.4 % (0.0-1.0); %Eosinophils 0.1 % (0.0-10.0); %Lymphocytes 5.9 % (21.0-51.0); %Monocytes 6.4 % (0.0-10.0); %Neutrophils 87.2 % (42.0-75.0); Hemoglobin 10.3 g/dL (14.0-18.0); Mean Corpuscular HGB CONC 33.5 g/dL (32.0-36.0); Mean Corpuscular Hemoglobin 33.3 pg (27.0-31.0); Mean Corpuscular Volume 99.3 fl (78.0-98.0); Mean Platelet Volume 7.3 fL (7.4-10.4); Platelet Count 190 10x3/uL (130-400); RBC Distribution Width 12.7 % (11.5-14.5); White Blood Cell (WBC) Count 6.7 10x3/uL (4.8-10.8)
[2022-10-24 05:46] LABS: Anion Gap 13 mmol/L (10-20); BUN (Urea Nitrogen) 75 mg/dL (8.4-25.7); Calc. Creatinine Clearance 26 mL/min (70-130); Calcium 9.3 mg/dL (7.8-10.44); Carbon Dioxide 26 mmol/L (23-31); Chloride 101 mmol/L (98-107); Estimated GFR 28; Glucose 235 mg/dL (83-110); Sodium 135 mmol/L (136-145)
[2022-10-24] MEDS: HumaLOG 300 UNITS/3 ML VIAL SC PRN ×3 (06:23→17:14)
[2022-10-24] MEDS: Hydrocortisone Sod Succ/PF 100 mg/2 ml Vial IVP SCH (06:23)
[2022-10-24] MEDS: Albumin 25% 25 GM/100 ML BOT IVPB SCH ×3 (06:23→15:37)
[2022-10-24] MEDS: HYDROcodone/Acetaminophen 5/325 mg Tablet PO PRN ×2 (06:27→15:37)
[2022-10-24] MEDS ORDERED: Insulin Glargine 30 UNITS/0.3 ML VIAL SC SCH (07:30)
[2022-10-24] MEDS ORDERED: Morphine 2 MG/ML VIAL SLOW IVP SCH (08:30)
[2022-10-24] MEDS: Aspirin 81 mg Enteric Coated Tablet PO SCH (09:40)
[2022-10-24] MEDS: Tamsulosin HCl 0.4 MG CAP PO SCH (09:41)
[2022-10-24] MEDS: Dronedarone HCl 400 MG TAB PO SCH (09:54)
[2022-10-24] MEDS: Cholecalciferol 1,000 UNITS (25 MCG) TAB PO SCH (11:42)
[2022-10-24] MEDS ORDERED: Hydrocortisone 10 mg Tablet PO SCH (15:00)
[2022-10-24 19:05] VITALS: BP 130/68
[2022-10-24 19:15] VITALS: TEMP 98.3
== END 2022-10-24 19:31 | DRG 643 ==
LOC: ERS 15:11 → 2NO 18:14 → OBSVTOIN 10-21 00:56 → IMCU/EMU 10-21 01:19 → CCU 10-21 15:03 → 2NO 10-22 17:29
PROVIDERS: ADMIT Internal Medicine; ATTEND Internal Medicine
PROC: 0HQLXZZ Repair Left Lower Leg Skin, External Approach (ICD-10-PCS; principal; 2022-10-21)
PROC: 8E0ZXY6 Isolation (ICD-10-PCS; 2022-10-21)
DX: E27.40 Unspecified adrenocortical insufficiency (principal); U07.1 COVID-19; N18.4 Chronic kidney disease, stage 4 (severe); I48.20 Chronic atrial fibrillation, unspecified; I42.8 Other cardiomyopathies; I50.42 Chronic combined systolic (congestive) and diastolic (congestive) heart failure; I13.2 Hypertensive heart and chronic kidney disease with heart failure and with stage 5 chronic kidney disease, or end stage renal disease; N40.0 Benign prostatic hyperplasia without lower urinary tract symptoms; I25.10 Atherosclerotic heart disease of native coronary artery without angina pectoris; E11.22 Type 2 diabetes mellitus with diabetic chronic kidney disease; R77.8 Other specified abnormalities of plasma proteins; S81.812A Laceration without foreign body, left lower leg, initial encounter; I95.89 Other hypotension; Z88.8 Allergy status to other drugs, medicaments and biological substances; Z79.899 Other long term (current) drug therapy; Z79.01 Long term (current) use of anticoagulants; Z79.4 Long term (current) use of insulin; Z95.1 Presence of aortocoronary bypass graft; Z95.810 Presence of automatic (implantable) cardiac defibrillator; V43.52XA Car driver injured in collision with other type car in traffic accident, initial encounter; Y92.410 Unspecified street and highway as the place of occurrence of the external cause
CPT/HCPCS: 36415; 36416; 70450; 71045; 71260; 72125; 74177; 80048; 80053; 82533; 82550; 82553; 83605; 83690; 83735; 83880; 84100; 84484; 85025; 85610; 85730; 86850; 86900; 86901; 90471; 90715; 93005; 93306; 96365; 96375; C9113; G0378; G0390; J1720; J1815; J1885; J2272; J2405; J2550; J3010; J7050; J7120; P9047; U0003; U0005